=== PATIENT | female | born 1995 | race Caucasian/White ===

== ENCOUNTER 2023-11-11 08:00 | Inpatient (IN) ==
[2023-11-11] MEDS ORDERED: OXYTOCIN 30 UNITS/NSS 30 UNITS/500 ML BAG IV PRN (09:00)
[2023-11-11] MEDS ORDERED: LIDOCAINE 1% LOCAL 20 ML VIAL INFIL PRN (09:00)
[2023-11-11 10:12] LABS: Hematocrit (blood only) 35.7 % (37.0-47.0); Hemoglobin 12.1 g/dl (12.0-16.0); Mean Corpuscular Hemoglobin 27.6 pg (25.0-34.0); Mean Corpuscular Hgb Conc 33.9 g/dL (32.0-36.0); Mean Corpuscular Volume 81.5 fL (80.0-100.0); Mean Platelet Volume 12.1 fL (9.4-12.4); Platelet Count 184 K/uL (130-400); RDW Coefficient of Variation 14.4 % (11.5-14.5); Red Blood Count 4.38 M/uL (4.20-5.40); White Blood Count 14.91 K/ul (4.8-10.8)
--- NOTE | 2023-11-11 11:02 | History & Physical Report ---
Date of Service November 11, 2023 Assessment & Plan (1) Gestational diabetes mellitus (GDM) affecting , antepartum: (2) Rh negative status during : Plan 28 yo G1 at 40 5/7 wga presents for iol VSS Fetus cat 1 Labor - 35cc palencia placed, pt tolerated well. Small amt of blood seen in palencia tubing after placement but baby remains cat 1, will monitor and start pit A1GDM - bg q4 GBS neg epidural prn Admission and Anticipated Discharge Date Admission Date: November 11, 2023 History of Present Illness Chief Complaint: IOL Primary Care Provider: Renetta Stephens MD 28 yo G1 at 40 5/7 wga presents for iol. 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 denies hx stis Allergies Allergy/AdvReac Type Severity Reaction Status Date / Time sulfamethoxazole Allergy Intermediate Rash Verified 11/11/23 09:03 [From Bactrim] trimethoprim [From Bactrim] Allergy Intermediate Rash Verified 11/11/23 09:03 amoxicillin [From Augmentin] Allergy Rash Verified 11/11/23 09:03 clavulanic acid Allergy Rash Verified 11/11/23 09:03 [From Augmentin] Penicillins Allergy Rash Verified 11/11/23 09:03 Home Medications Medication Instructions Recorded Confirmed Type albuterol sulfate 90 mcg/actuation 2 puff inhalation Q4H PRN 03/17/22 11/11/23 Rx aerosol inhaler shortness of breath #1 inhaler cetirizine 10 mg tablet 10 mg PO DAILY PRN Allergic 03/17/22 11/11/23 History Symptoms PNV no.[id number] 1 tab PO DAILY 03/20/23 11/11/23 History [ Gummies] mometasone intranasal 03/20/23 11/10/23 History acetone (urine) test (Ketone Urine #50 ea 06/24/23 11/10/23 Rx Test strips) blood sugar diagnostic (OneTouch #150 ea 06/24/23 11/10/23 Rx Verio test strips) blood-glucose meter (Tizor SystemsTouch #1 ea 06/24/23 11/10/23 Rx Verio Reflect Meter) lancets 33 gauge (OneTouch Delica #150 ea 06/24/23 11/10/23 Rx Plus Lancet) Patient History Medical History Seasonal allergies Asthma Varicella vaccination Surgical History S/P nasal septoplasty S/P rhinoplasty S/P wisdom tooth extraction S/P tonsillectomy and adenoidectomy Family History Father Prostate cancer Mother Diabetes Grandfather (Maternal) Heart disease Brother Hypertension Denies family history of Ovarian cancer Breast cancer Colorectal cancer Social History Smoking Status: Never smoker Do You Dip or Chew Tobacco: No; Hx Alcohol Use: No Hx Substance Use: No Preferred Language: Albanian Communication Ability: Effective Epic Trainer Required: No Beliefs That Will Affect Care: None marital status: marital status details: Jesse Maciel (36) [phone] Current Living Situation: Spouse Current Living Situation Comment: lives with spouse, dog current occupational status: employed current occupation: [employer] Other Information That Helps Us Care for You: No Feels Safe at Home: Yes Safety Concerns: Feels Safe At This Time Physical Exam Genitourinary: OB Exam Abdomen: + vertex (confirmed by bsus) and + estimated weight (8-9) Manual OB Exam: + cervical dilation 1 cm, + cervical effacement 50% and + station -2 OB Exam Monitor Tracing: + external FHT monitor used, + external uterine monitor used (irreg) and + category I (130/mod/+accel/-decel) Results & Data Vital Signs (Past 12 Hours) Vital Signs Temp Pulse Resp BP 11/11/23 08:47 76 105/66 11/11/23 08:41 98.6 F 20 Laboratory Results OB Labs: Blood Type A Negative 03/27/23 Antibody Screen NEGATIVE 08/19/23 Hgb 10.7 g/dl (12.0-16.0) L 08/19/23 Hct 32.0 % (37.0-47.0) L 08/19/23 MCV 84.6 fL (80.0-100.0) 03/27/23 Plt Count 299 K/uL (130-400) 03/27/23 Rubella IgG Antibody Immune (Immune) 03/27/23 RPR Nonreactive (Nonreactive) 03/27/23 Hep Bs Antigen NON-REACTIVE (NON-REACTIVE) 03/27/23 Hepatitis C Ab (EIA) NON-REACTIVE (NON-REACTIVE) 03/27/23 HIV (1&2) Ag & Ab Conf NON-REACTIVE (NON-REACTIVE) 03/27/23 Glucose 1 Hr 50 gm 161 mg/dl (70-130) H 06/03/23 OB Optional Labs: Chlamydia trachomatis RNA Not Detected (NotDetected) 03/27/23 Neisseria gonorrhoeae RNA Not Detected (NotDetected) 03/27/23 Labs Reviewed: Horizon 14-negative--mln cfdna-low risk--mln failed early 2 hr gtt. Diagnostic Findings post plac Coding Level of Care Code None Diagnoses Gestational diabetes mellitus (GDM) affecting , antepartum O24.419 Rh negative status during O26.899; Z67.91
[2023-11-11] MEDS: OXYTOCIN 30 UNITS/NSS 30 UNITS/500 ML BAG IV PRN (11:28)
[2023-11-11] MEDS: LACTATED RINGER'S 1,000 ML IV PRN (11:28)
--- NOTE | 2023-11-11 15:56 | Labor Progress Brief Note ---
Date of Service November 11, 2023 Subjective feels better w/ balloon out Assessment & Plan (1) Gestational diabetes mellitus (GDM) affecting , antepartum: (2) Rh negative status during : Plan 28 yo G1 at 40 5/7 wga presents for iol VSS Fetus cat 1 Labor - s/p arom, pit at 10. Continue induction A1GDM - bg q4 GBS neg epidural prn Admission and Anticipated Discharge Date Admission Date: November 11, 2023 Physical Exam Genitourinary: Manual OB Exam: + cervical dilation 3 cm, + cervical effacement 50%, + station -2 and + amniotic fluid (arom clear) OB Exam Monitor Tracing: + external FHT monitor used, + external uterine monitor used (q3) and + category I (130/mod/+accel/-decel) Results & Data Vital Signs (Past 12 Hours) Vital Signs Temp Pulse Resp BP 11/11/23 15:32 68 124/72 11/11/23 15:15 18 11/11/23 15:15 18 11/11/23 14:32 67 109/56 L 11/11/23 13:31 64 103/60 11/11/23 13:10 98.4 F 11/11/23 12:30 77 123/67 11/11/23 11:29 78 101/59 L 11/11/23 08:47 76 105/66 11/11/23 08:41 98.6 F 20 Coding Level of Care Code None Diagnoses Gestational diabetes mellitus (GDM) affecting , antepartum O24.419 Rh negative status during O26.899; Z67.91
[2023-11-11] MEDS ORDERED: ROPIVACAINE 0.5% PF 5 MG/ML 20 ML VIAL EPI PRN (16:31)
[2023-11-11] MEDS ORDERED: NALBUPHINE HCL INJ 10 MG/ML AMP IV PRN (16:31)
[2023-11-11] MEDS ORDERED: LIDOCAINE 2% MPF LOCAL 5 ML VIAL EPI PRN (16:31)
[2023-11-11] MEDS ORDERED: NALOXONE HCL 1 MG in SODIUM CHLORIDE 0.9% 1,000 ML IV PRN (16:31)
[2023-11-11] MEDS ORDERED: ePHEDrine sulfate 50 MG/ML AMP IV PRN (16:31)
[2023-11-11] MEDS ORDERED: SODIUM CHLORIDE 0.9% PF INJ 10 ML VIAL EPI PRN (16:31)
[2023-11-11] MEDS ORDERED: BUPIVACAINE 0.25% PF 30 ML VIAL EPI PRN (16:31)
[2023-11-11] MEDS ORDERED: NALOXONE HCL 0.4 MG/1 ML VIAL/CARP IV PRN (16:31)
[2023-11-11] MEDS ORDERED: diphenhydrAMINE 50 MG/ML VIAL IV PRN (16:31)
[2023-11-11] MEDS ORDERED: fentaNYL citrate PF 100 MCG/2 ML VIAL EPI PRN (16:31)
--- NOTE | 2023-11-11 16:31 | Anesthesiology Consultation ---
Date of Service November 11, 2023 Assessment & Plan Chart Review Chart Review: Acceptable Risk for Surgery and Patient NOT seen in Pre Admission Testing Consults Requested none History Height/Weight Height: 5 ft 1 in Weight: 88.451 kg Allergies Allergy/AdvReac Type Severity Reaction Status Date / Time sulfamethoxazole Allergy Intermediate Rash Verified 11/11/23 09:03 [From Bactrim] trimethoprim [From Bactrim] Allergy Intermediate Rash Verified 11/11/23 09:03 amoxicillin [From Augmentin] Allergy Rash Verified 11/11/23 09:03 clavulanic acid Allergy Rash Verified 11/11/23 09:03 [From Augmentin] Penicillins Allergy Rash Verified 11/11/23 09:03 Medications Home Medications Medication Instructions Recorded Confirmed Last Taken albuterol sulfate 90 mcg/actuation 2 puff inhalation Q4H PRN 03/17/22 11/11/23 11/08/23 aerosol inhaler shortness of breath #1 inhaler cetirizine 10 mg tablet 10 mg PO DAILY PRN Allergic 03/17/22 11/11/23 11/11/23 06:00 Symptoms PNV no.[id number] 1 tab PO DAILY 03/20/23 11/11/23 11/10/23 20:00 [ Gummies] mometasone intranasal 03/20/23 11/10/23 Unknown acetone (urine) test (Ketone Urine #50 ea 06/24/23 11/10/23 Unknown Test strips) blood sugar diagnostic (OneTouch #150 ea 06/24/23 11/10/23 Unknown Verio test strips) blood-glucose meter (OneTouch #1 ea 06/24/23 11/10/23 Unknown Verio Reflect Meter) lancets 33 gauge (OneTouch Delica #150 ea 06/24/23 11/10/23 Unknown Plus Lancet) Active Medications Generic Name Dose Route Start Last Admin Trade Name Freq PRN Reason Stop Dose Admin Oxytocin 30 units in 500 mls @ 10 mls/hr 11/11/23 09:00 11/11/23 15:25 Pitocin 30 Units/Nss IV 11/13/23 08:59 0.6 units/hr .Q24H PRN 10 mls/hr Labor Induction/Augmentation Titration Protocol 0.6 UNITS/HR Lactated Ringer's 1,000 mls @ 125 mls/hr 11/11/23 09:00 11/11/23 15:56 Lr IV 11/13/23 08:59 999 mls/hr .Q8H PRN Administration L&D Protocol Protocol Past Medical History Medical History Seasonal allergies Asthma Varicella vaccination Past Family History Family History Father Prostate cancer Mother Diabetes Grandfather (Maternal) Heart disease Brother Hypertension Denies family history of Ovarian cancer Breast cancer Colorectal cancer Past Surgical History Surgical History S/P nasal septoplasty S/P rhinoplasty S/P wisdom tooth extraction S/P tonsillectomy and adenoidectomy Social History Smoking Status: Never smoker Do You Dip or Chew Tobacco: No Hx Alcohol Use: No Hx Substance Use: No Physical Exam Vital Signs Last Vital Signs Temp 36.9 C 11/11/23 13:10 Pulse 68 11/11/23 15:32 Resp 18 11/11/23 15:15 BP 124/72 11/11/23 15:32 Testing Laboratory Results 11/11/23 09:32 Blood Type A Negative 11/11/23 09:32 Antibody Screen NEGATIVE 11/11/23 09:32 11/11/23 11/11/23 15:02 11:10 POC Glucose 82 83
[2023-11-11] MEDS: LIDOCAINE 2%/EPINEPHRINE 1:200,000 20 ML PF ONE (16:55)
[2023-11-11] MEDS: fentANYL 2 MCG/ML BUPIVacaine 0.125%-NSS 100ML BAG ONE (16:55)
[2023-11-11] MEDS: SODIUM CHLORIDE 0.9% PF INJ 10 ML VIAL ONE (17:40)
[2023-11-11] MEDS: BUPIVACAINE 0.25% PF 30 ML VIAL EPI STA (17:40)
[2023-11-11] MEDS: fentaNYL citrate PF 100 MCG/2 ML VIAL EPI STA (17:40)
[2023-11-11] MEDS: fentaNYL citrate PF 100 MCG/2 ML VIAL ONE (17:40)
[2023-11-11] MEDS: BUPIVACAINE 0.25% PF 30 ML VIAL ONE (17:40)
[2023-11-11] MEDS: LIDOCAINE 2%/EPINEPHRINE 1:200,000 20 ML PF EPI STA (17:41)
[2023-11-11] MEDS: SODIUM CHLORIDE 0.9% PF INJ 10 ML VIAL EPI STA (17:41)
--- NOTE | 2023-11-11 23:17 | Labor Progress Brief Note ---
Date of Service November 11, 2023 Subjective comfortable w/ epidural Assessment & Plan (1) Gestational diabetes mellitus (GDM) affecting , antepartum: (2) Rh negative status during : Plan 28 yo G1 at 40 5/7 wga presents for iol VSS Fetus cat 1 Labor - pit at 20, progress per nursing check. IUPC was placed and has adequate mvus majority of time. Continue induction A1GDM - bg q4 GBS neg epidural in place Admission and Anticipated Discharge Date Admission Date: November 11, 2023 Physical Exam Genitourinary: OB Exam Monitor Tracing: + external FHT monitor used, + intra- uterine pressure catheter used (q2, last was adeq mvus) and + category I (130/mod/+accel/-decel) SVE was 3/80/-1 by nursing at last check Results & Data Vital Signs (Past 12 Hours) Vital Signs Temp Pulse Resp BP Pulse Ox 11/11/23 23:09 67 98 11/11/23 23:05 18 11/11/23 23:05 97.9 F 18 11/11/23 23:04 67 100 11/11/23 23:01 60 98/59 L 11/11/23 22:59 63 97 11/11/23 22:54 60 98 11/11/23 22:49 79 99 11/11/23 22:46 61 102/62 11/11/23 22:44 68 97 11/11/23 22:39 56 L 98 11/11/23 22:34 62 98 11/11/23 22:32 55 L 99/57 L 11/11/23 22:29 64 98 11/11/23 22:24 56 L 98 11/11/23 22:19 57 L 97 11/11/23 22:17 57 L 92/53 L 11/11/23 22:14 63 97 11/11/23 22:09 60 97 11/11/23 22:04 71 98 11/11/23 22:02 62 96/51 L 11/11/23 21:59 61 98 11/11/23 21:54 57 L 98 11/11/23 21:49 61 98 11/11/23 21:47 58 L 93/50 L 11/11/23 21:44 64 98 11/11/23 21:39 78 98 11/11/23 21:34 67 98 11/11/23 21:31 63 118/71 11/11/23 21:30 18 11/11/23 21:30 98.1 F 18 11/11/23 21:29 62 98 11/11/23 21:24 60 98 11/11/23 21:19 64 98 11/11/23 21:16 60 120/67 11/11/23 21:14 66 97 11/11/23 21:09 65 97 11/11/23 21:04 62 97 11/11/23 21:01 66 116/70 11/11/23 20:59 63 98 11/11/23 20:54 71 99 11/11/23 20:49 68 99 11/11/23 20:44 67 98 11/11/23 20:41 67 114/58 L 11/11/23 20:39 73 99 11/11/23 20:34 66 99 11/11/23 20:29 68 99 11/11/23 20:24 60 98 11/11/23 20:19 61 98 11/11/23 20:16 57 L 89/53 L 11/11/23 20:14 59 L 98 11/11/23 20:09 59 L 99 11/11/23 20:04 64 100 11/11/23 20:01 63 96/52 L 11/11/23 19:59 59 L 99 11/11/23 19:54 60 100 11/11/23 19:49 60 100 11/11/23 19:46 60 94/51 L 11/11/23 19:44 61 99 11/11/23 19:39 63 99 11/11/23 19:34 58 L 100 11/11/23 19:31 55 L 94/54 L 11/11/23 19:29 60 100 11/11/23 19:24 60 100 11/11/23 19:19 58 L 100 11/11/23 19:14 59 L 99 11/11/23 19:09 60 99 11/11/23 19:04 70 99 11/11/23 19:03 18 11/11/23 19:03 98.4 F 18 11/11/23 19:02 63 106/75 11/11/23 19:00 20 11/11/23 19:00 20 11/11/23 18:59 62 99 11/11/23 18:54 64 99 11/11/23 18:49 64 99 11/11/23 18:46 68 113/72 11/11/23 18:44 67 99 11/11/23 18:39 66 99 11/11/23 18:34 65 99 11/11/23 18:31 62 112/69 11/11/23 18:30 18 11/11/23 18:30 18 11/11/23 18:29 65 98 11/11/23 18:24 67 99 11/11/23 18:19 62 98 11/11/23 18:14 70 99 11/11/23 18:09 63 98 11/11/23 18:04 61 100 11/11/23 18:02 64 101/57 L 11/11/23 18:00 18 11/11/23 18:00 18 11/11/23 17:59 71 99 11/11/23 17:54 62 99 11/11/23 17:50 98.8 F 11/11/23 17:49 59 L 99 11/11/23 17:46 62 93/51 L 11/11/23 17:44 65 98 11/11/23 17:41 59 L 92/55 L 11/11/23 17:39 68 98 11/11/23 17:36 63 92/55 L 11/11/23 17:34 63 98 11/11/23 17:31 63 91/55 L 11/11/23 17:30 18 11/11/23 17:30 18 11/11/23 17:29 62 99 11/11/23 17:27 60 98/56 L 11/11/23 17:24 65 98 11/11/23 17:22 65 101/54 L 11/11/23 17:19 66 99 11/11/23 17:15 64 96/53 L 11/11/23 17:14 72 99 11/11/23 17:13 61 93/53 L 11/11/23 17:11 69 91/52 L 11/11/23 17:10 18 11/11/23 17:10 18 11/11/23 17:09 73 97 11/11/23 17:05 67 96/55 L 11/11/23 17:04 67 98 11/11/23 17:03 65 96/53 L 11/11/23 17:01 61 100/55 L 11/11/23 16:59 69 112/56 L 99 11/11/23 16:57 67 113/55 L 11/11/23 16:55 74 113/73 11/11/23 16:54 80 98 11/11/23 16:49 71 99 11/11/23 16:44 73 99 11/11/23 16:37 63 115/70 11/11/23 15:59 98.8 F 11/11/23 15:32 68 124/72 11/11/23 15:15 18 11/11/23 15:15 18 11/11/23 14:32 67 109/56 L 11/11/23 13:31 64 103/60 11/11/23 13:10 98.4 F 11/11/23 12:30 77 123/67 11/11/23 11:29 78 101/59 L Coding Level of Care Code None Diagnoses Gestational diabetes mellitus (GDM) affecting , antepartum O24.419 Rh negative status during O26.899; Z67.91
[2023-11-12] MEDS: ePHEDrine sulfate 50 MG/ML AMP ONE (00:41)
[2023-11-12] MEDS: fentANYL 2 MCG/ML BUPIVacaine 0.125%-NSS 100ML BAG EPI PRN (00:48)
[2023-11-12 10:55] VITALS: O2SAT 98
[2023-11-12 11:18] LABS: Cord Venous Blood PCO2 95 mmHg (30.4-57.2); Cord Venous Blood PO2 25 mmHg (14.1-43.3); Cord Venous Blood pH < 7.00 (7.20-7.44); O2 Saturation Cord Venous Bld < 60.0 % (<68)
--- NOTE | 2023-11-12 13:15 | Anesthesia Procedure Note ---
Date of Service November 12, 2023 Anesthesia Post Epidural Note Vital Signs Vital Signs: Temp Pulse Resp BP Pulse Ox 98.2 F 77 16 116/61 98 11/12/23 05:00 11/12/23 12:55 11/12/23 05:30 11/12/23 12:55 11/12/23 10:54 Notes Mental Status: alert / awake / arousable and participated in evaluation Nausea / Vomiting: adequately controlled Pain: adequately controlled Airway Patency, RR, SpO2: stable & adequate BP & HR: stable & adequate Hydration State: stable & adequate Neuraxial Anesthesia: was administered and sensory block is resolving Anesthetic Complications: no major complications apparent and Pt Satisfied with anesthetic care Epidural: Removed without complications and With tip intact
[2023-11-12] MEDS ORDERED: OXYTOCIN 30 UNITS/NSS 30 UNITS/500 ML BAG IV PRN (13:24)
[2023-11-12] MEDS ORDERED: HYDROCORTISONE ACETATE 25 MG SUPP PR PRN (13:24)
[2023-11-12] MEDS ORDERED: bisacodyL 10 MG SUPP PR PRN (13:24)
[2023-11-12] MEDS: ACETAMINOPHEN 325 MG TAB PO PRN (13:45)
[2023-11-12] MEDS: IBUPROFEN 600 MG TAB PO PRN (15:27)
[2023-11-12] MEDS: LIDOCAINE 2% JELLY 5 ML TUBE EXT ONE (17:00)
[2023-11-12] MEDS: TERBUTALINE SULFATE 1 MG/ML VIAL ONE (19:27)
[2023-11-12] MEDS: METHYLERGONOVINE MALEATE 0.2 MG/ML AMP ONE (19:28)
[2023-11-12] MEDS: miSOPROStoL 200 MCG TAB ONE (19:31)
[2023-11-12] MEDS: miSOPROStoL 200 MCG TAB PR ONE (19:36)
--- NOTE | 2023-11-12 20:06 | Delivery Summary ---
Vaginal Delivery Summary Date of Service November 12, 2023 Vaginal Delivery Summary VAVD and 2nd Degree LAC I entered the room at approximately 9:01 AM. The off coming provider was in the room and I was informed that the maternal heart rate and heart rate were in close proximity and they were trying to determine heart rate separate from maternal heart rate. Three separate FSE's were placed although they were not working appropriately. The first 2 FSE's were placed by the off coming provider and I placed the additional FSE. As the FSE was not working appropriately there was an attempt at visualizing the heart with an ultrasound although due significant shadowing from the pubic bone was not able to see. The abdominal heart monitor was then replaced and it was felt that there was a very clear heart tones in the 110s with good variability and accelerations occurring. Patient was noted to be 10 cm dilated 100% effaced and +2 station. At time of pushing heart rate was noted to be category 1 with moderate variability and accelerations noted. heart rate hovered very close to maternal heart rate throughout pushing and was distinctly noted for heart rate sound with several beats per minute separation and variability noted for heart rate but not for maternal heart rate. There is also noted to be distinct separation during the accelerations from maternal and heart beat. This was noted throughout the entire time of pushing. After short period of pushing there is noted to be a period of heart rate deceleration down into the 80s to 90s. Patient was verbally consented for an attempted vacuum assisted delivery. Risks of the vacuum were discussed and patient verbally consented. Vacuum was applied 2 cm anterior to the posterior fontanelle with suction pressure into the green zone and attempted delivery over 3-4 contractions. Care was taken to keep all pressure within the recommended range indicated on the Kiwi vacuum was noted to come down into the pelvis further with the vacuum. After the last vacuum attempt the heart rate was noted to be back up into the 110s with good variability and accelerations. Because the strip was noted again to be category 1 we continued pushing. At approximately [id number] there was noted to be heart rate audibly and visually on the monitor into the 80s to 90s. I asked for the OR to be prepped for an urgent . The was noted to be at +3 to +4 station. The heart rate was noted to come back up into the low 100s with dips on occasion into the 80s/90s and the good variability was still noted. There were periods where the heart rate was difficult to find but we would it again it would be around 105. I communicated with the patient that we were prepping the OR for a urgent section but we would continue pushing while we await the OR being ready as expediting delivery was the main goal. We continue to push until the OR was prepped for the . At that point the was noted to be very close to delivery and offered 1 more attempt at a vacuum-assisted delivery as she made excellent progress while pushing. The vacuum was applied again 2 cm anterior to posterior fontanelle and suction increased to the green zone. Care was taken to keep applied tension within the recommended range for the Kiwi and the head delivered over 1 contraction. There was noted to be a a turtle sign with retraction of the head after delivery and a shoulder dystocia was suspected. Attempt at delivery of the anterior shoulder noted a deeply impacted shoulder on the pubic bone. A shoulder dystocia was called and attempt at delivery of the posterior shoulder was initiated. After the initial attempt to deliver the posterior shoulder was unsuccessful I asked for Rufus position and suprapubic pressure which was also unsuccessful in delivering the anterior shoulder. Corkscrew and Chintan maneuvers were then attempted in sequence without success. I considered episiotomy however there was already noted to be a second-degree laceration present. I asked a second provider be called to assist due to the difficult nature of the shoulder dystocia. A second attempt at the posterior shoulder was initiated and I was able to grasp around the axilla however with traction no movement was noted. A second attempt at Chintan and corkscrew were also unsuccessful. I asked for suprapubic pressure again and a sweep at the anterior shoulder and was able to grasped the axilla of the anterior shoulder with the suprapubic pressure and was able to deliver this under the pubic bone. The remainder of body quickly followed. was noted to be limp on delivery and the cord was immediately double clamped and cut and taken to the awaiting nursery staff. The nursery staff was already present and available awaiting to provide resuscitation measures. Total time for shoulder dystocia was approximately 4.5 to 5 minutes in length. Fundal pressure was never applied in any time during the delivery. After delivery, cord segment was obtained. Attempt at obtaining cord blood was unsuccessful. Placenta delivered intact with three-vessel cord with gentle cord traction. There was noted to be second-degree perineal laceration which repaired with 3-0 Vicryl in traditional crown stitch. was taken to the nursery for continued resuscitation. Mother was noted to be stable. [facility] Vaginal Delivery Charge Delivery Type Details: VAVD and 2nd Degree LAC
[2023-11-12] MEDS: DOCUSATE SODIUM 100 MG CAP PO SCH (20:45)
[2023-11-12] MEDS: BENZOCAINE 20% SPRY 85 APPLN/85 GM CAN EXT PRN (20:46)
[2023-11-13] MEDS: oxyCODONE/ACETAMINOPHEN 5mg/325mg TAB PO PRN (04:23)
[2023-11-13 04:41] LABS: Hematocrit (blood only) 29.6 % (37.0-47.0); Hemoglobin 10.2 g/dl (12.0-16.0); Mean Corpuscular Hemoglobin 27.9 pg (25.0-34.0); Mean Corpuscular Hgb Conc 34.5 g/dL (32.0-36.0); Mean Corpuscular Volume 81.1 fL (80.0-100.0); Mean Platelet Volume 11.4 fL (9.4-12.4); Platelet Count 158 K/uL (130-400); RDW Coefficient of Variation 14.6 % (11.5-14.5); RDW Standard Deviation 43.3 fL (36.4-46.3); Red Blood Count 3.65 M/uL (4.20-5.40); White Blood Count 23.92 K/ul (4.8-10.8)
--- NOTE | 2023-11-13 08:54 | Obstetrical Progress Note ---
Date of Service November 13, 2023 Assessment & Plan (1) Encounter for care and examination after delivery: Patient physically doing well today. I had a lengthy discussion describing the events that unfolded during the delivery process yesterday. Had a initial discussion several hours after delivery and readdress any concerns again this morning. Vitals within normal range and patient reporting normal bleeding. Nursing assessment is also agreeable with patient doing well. Would like to be discharged today and will provide discharge instructions. Subjective Ambulation: ambulating normally Voiding: no voiding problems Passing Gas:: Yes Diet Tolerance:: regular diet Lochia:: Moderate Physical Exam Patient sitting up in bed eating breakfast at time of visit. Results & Data Vital Signs (Past 12 Hours) Vital Signs Temp Pulse Resp BP 11/13/23 04:34 36.9 C 77 20 119/63 11/13/23 00:11 36.6 C 18 11/13/23 00:11 78 121/77
[2023-11-13] MEDS ORDERED: DIPHTHER/TETAN/PERTUS Vaccine (Tdap, Adol/Adult) 0.5mL IM ONE (09:00)
[2023-11-13] MEDS: PRENATAL VITAMIN 1 TAB PO SCH (09:32)
[2023-11-13 11:33] VITALS: BP 119/68; PULSE 80
[2023-11-13 13:54] VITALS: RESP 19; TEMP 97.7
[2023-11-13] MEDS ORDERED: bisacodyL 5 MG TABEC PO SCH (20:00)
== END 2023-11-13 13:00 | disposition home or self-care (01) | DRG 807 ==
LOC: 4S1 08:00